=== PATIENT | male | born 1945 | race Caucasian/White ===

== ENCOUNTER 2024-03-16 05:21 | Day surgery (SDC) | payer MEDICARE, OTHER ==
[~2024-03-16] VITALS: Ht 175.3 cm; Wt 97.1 kg
[2024-03-16] VITALS (7 sets, daily range): BP systolic 105–150; BP diastolic 67–88; PULSE 51–58; TEMP 96.9–97.5
[~2024-03-16 05:21] MED LIST: LR 1,000 ML IV SCH
[2024-03-16] MEDS ORDERED: ROXICODONE 55 MG/TAB PO (05:56)
[2024-03-16] MEDS ORDERED: HCTZ12.5TAB PO (05:57)
[2024-03-16] MEDS ORDERED: LOPRESSOR 225 MG/TAB PO (05:57)
[2024-03-16] MEDS ORDERED: NORVASC 10MG10 MG PO (05:58)
[2024-03-16] MEDS ORDERED: PROTONIX 40MG T40 MG PO (05:58)
[2024-03-16] MEDS ORDERED: LIPITOR 10MG10 MG PO (05:58)
[2024-03-16] MEDS ORDERED: FLOMAX 0.40.4 MG/CAP PO (05:58)
[2024-03-16] MEDS ORDERED: ASPIRIN 81M81 MG/TA2 PO (05:59)
[2024-03-16] MEDS ORDERED: ALEVE 220MG220 MG PO (05:59)
[2024-03-16] MEDS ORDERED: ePHEDrine 50 MG/ML VIAL ONE (07:10)
[2024-03-16] MEDS ORDERED: fentaNYL 50 MCG/ML 2 ML VIAL ONE (07:11)
[2024-03-16] MEDS ORDERED: Ondansetron 4 MG/2 ML VIAL ONE (07:14)
[2024-03-16] MEDS ORDERED: Lidocaine PF 2% (20 MG/ML) 5 ML VIAL ONE (07:14)
[2024-03-16] MEDS ORDERED: dexAMETHasone 10 MG/ML VIAL ONE (07:14)
[2024-03-16] MEDS ORDERED: NS 10 ML IV ONE (07:14)
[2024-03-16] MEDS ORDERED: Lidocaine 2% (20 MG/ML) 20 ML UROJET UR ONE (07:31)
[2024-03-16] MEDS ORDERED: hydrALAZINE 20 MG/ML 1 ML VIAL IV PRN (08:00)
[2024-03-16] MEDS ORDERED: Ondansetron 4 MG/2 ML VIAL IV PRN (08:00)
[2024-03-16] MEDS ORDERED: HYDROmorphone 1 MG/1 ML SYRINGE [PACU/SDC ONLY] IV PRN (08:00)
[2024-03-16] MEDS ORDERED: fentaNYL 50 MCG/ML 1 ML SYRINGE/VIAL [PACU/SDC ONLY] IV PRN (08:00)
--- NOTE | 2024-03-16 08:55 | NUR ---
PATIENT RETURNED TO ROOM 1 VIA CART, ALERT AND ORIENTED X3. DENIES PAIN, NAUSEA AND SHORTNESS OF BREATH. BREATHING REGULAR/UNLABORED ON ROOM AIR. SKIN WARM AND DRY. NURSE HANDOFF COMPLETED IN ROOM. SEE CHART FOR VITAL SIGNS. PATIENT HAD GRAPE JUICE AND CHOCOLATE PUDDING. BOTH FOOD AND DRINK TOLERATED WELL. NO DYSPHAGIA. CALL LIGHT IN REACH. SON PRESENT IN ROOM.
--- NOTE | 2024-03-16 09:12 | NUR ---
SPOKE WITH JUAN JAQUEZ CRNA REGARDING PATIENTS HEART RATE/RHYTHM. UPON AUSCULTATION HEART TONES REGULAR WITH OCCASSIONAL PAUSE AND AN EARLY BEAT. 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 NO CONCERN PER ANESTHESIA THIS PRESENTATION IS CONSISTENT WITH PATIENT PRE OPERATIVELY. PATIENT HAS NO COMPLAINTS AND IS RESTING COMFORTABLY IN CART.
--- NOTE | 2024-03-16 10:50 | NUR ---
0940: PATIENT HAD A MUFFIN TO EAT. 0952: PATIENT AMBULATED TO RESTROOM WITH STEADY GAIT AND VOIDED WITHOUT DIFFICULTY. NO CLOTS IN URINE. 1039: DENIES PAIN, NAUSEA AND SHORTNESS OF BREATH. IV REMOVED. GAUZE AND COBAN PLACED OVER SITE. 1040: DISCHARGE TEACHING COMPLETED WITH PRINTED EDUCATION AND INSTRUCTIONS SENT HOME WITH PATIENT AND SON ([place]). 1050: PATIENT DISCHARGED HOME WITH SON ([place]).
== END 2024-03-16 10:50 | disposition home or self-care (01) ==
LOC: SDCO 05:21
DX: N20.2 Calculus of kidney with calculus of ureter (principal); Z95.2 Presence of prosthetic heart valve; Z79.82 Long term (current) use of aspirin
CPT/HCPCS: C1769; C2617; J0690; J1100; J2405; J2704; J3010; J7120